=== PATIENT | female | born 1970 | race Caucasian/White ===

== ENCOUNTER 2016-08-14 12:45 | Emergency (ER) | payer OTHER ==
[2016-08-14] MEDS ORDERED: MORPHINE 2 MG/ML 1ML SYRINGE As Ordered ONE (13:26)
[2016-08-14] MEDS ORDERED: ONDANSETRON 4MG/2ML VIAL (J2405) As Ordered ONE (13:26)
[2016-08-14] MEDS ORDERED: LIDOCAINE W/EPINEPHRINE 1% 20ML VIAL As Ordered ONE (14:13)
--- NOTE | 2016-08-14 14:13 | REP ---
CT Head without contrast HISTORY: Fall COMPARISON: None There is no intraparenchymal hemorrhage, acute infarct, mass or midline shift. The ventricular system is normal in appearance. There is no extra cerebral collection. There is no fracture. The visualized sinuses are clear. IMPRESSION: There is no intracranial lesion. Signed by Rajeev Danielle MD 08/14/2016 02:05 P
--- NOTE | 2016-08-14 15:05 | REP ---
MAXILLOFACIAL CT WITHOUT CONTRAST: HISTORY: Fall. Minimal mucosal thickening is present in the right maxillary sinus. The remaining sinuses are clear. The ostiomeatal units are patent. The middle and inferior nasal turbinates are partially paradoxical. There is mild deviation of the nasal septum to the right. A spur is present arising from the right side of the nasal septum. The spur abuts the right inferior nasal turbinate. The cribriform plate, medial sheridan of the orbits and optic canals are intact. The carotid canals form a segment of the posterolateral sheridan of the sphenoid sinus. There is no fracture. Soft tissue swelling is present overlying the right maxillary sinus and inferior orbit. IMPRESSION: 1. Sinus mucosal thickening as described above. 2. There is no fracture. Signed by Rajeev Danielle MD 08/14/2016 03:15 P
--- NOTE | 2016-08-14 15:10 | REP ---
CT cervical spine without contrast: History: Fall. There is no acute fracture or subluxation. Disc bulges are present at the C3-4 and C4-5 levels. A disc bulge with associated osteophyte formation is present at the C5-6 level. There is minimal narrowing of the spinal canal. Uncinate process hypertrophy is present at the C5-6 level. This produces minimal narrowing of the C5 neural foramina. The remaining neural foramina are patent. The C3-4 and C5-6 intervertebral discs are decreased in height consistent with disc degeneration. Subchondral cysts are present in the C4 and C6 vertebral bodies. Anterior osteophytes are present at the C1-2 and C3 through C7 levels. There is loss of the normal lordotic curve. The thyroid gland is heterogeneous in density. The thyroid gland is normal in size. IMPRESSION: 1. There is no acute fracture or subluxation. 2. There is cervical spondylosis at the C1-2 and C3-4 trough C5-6 levels. 3. The thyroid gland is heterogeneous in density. Ultrasound may be helpful for further evaluation. Signed by Rajeev Danielle MD 08/14/2016 03:15 P
--- NOTE | 2016-08-14 15:57 | REP ---
Right ankle series: Five views: History: Injury in a fall. Findings: Five views of the right ankle demonstrate Achilles and plantar calcaneal spurring. Ankle mortise is intact. No tibial or fibular fracture is seen. There are soft tissue calcifications in the subcutaneous fat layer of the distal calf. These may be dystrophic or related to venous insufficiency. Impression: Heel spurs. No fracture or subluxation seen. Subcutaneous soft tissue calcifications. Signed by Gt Quinteros MD 08/14/2016 04:24 P
--- NOTE | 2016-08-14 16:12 | EDDOCDS ---
Physician Documentation [facility] Name: Massiel Hardin Age: 46 yrs Sex: Female : 1970 Arrival Date: 08/14/2016 Time: 12:45 Bed 7 Private MD: Megan Arora A Disposition: 08/14/16 16:00 Discharged to Home/Self Care. Impression: Fall (on) (from) other stairs and steps, Open wound of head. - Condition is Stable. - Discharge Instructions: Fall Prevention and Home Safety, Facial Laceration, [id number]. - Medication Reconciliation, Local Pharmacy Hours form. - Follow up: Megan Aorra; When: Call to arrange an appointment; Reason: Continuance of care. Follow up: Juan Fernandez; When: Call to arrange an appointment; Reason: Continuance of care. - Problem is new. - Symptoms have improved. Historical: - Allergies: No known drug Allergies; - Home Meds: 1. Sertraline daily 2. hydroxyzine HCl 25 mg Oral tab nightly 3. Zyrtec 10 mg Oral tab 1 tab once daily 4. Omeprazole OTC strength Oral as needed 5. levothyroxine 100 mcg Oral tab 1 tab once daily - PMHx: Hypothyroidism; GERD; Hiatal Hernia; Small umbilical hernia; DVT; - PSHx: Cholecystectomy; Left wrist surgery; Left achilles tendon surgery; - Social history: Smoking status: Patient uses tobacco products, current some day smoker. No barriers to communication noted, The patient speaks fluent Cambodian, Speaks appropriately for age. - Family history: Not pertinent. - : The pt / caregiver states he / she is not on anticoagulants. Home medication list is obtained from the patient. - Exposure Risk Screening:: None identified. 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 8 in. (172.72 cm); Pain 8/10; 16:09 BP 145 / 72; Pulse 80; Resp 18; Temp 97.3; Pulse Ox 98% on R/A; Pain 5/10; pml 12:56 Body Mass Index 41.81 (124.74 kg, 172.72 cm) kc3 Procedures: 14:35 Laceration repair:. fg Laceration: 14:35 Wound Repair of 2.5cm ( 1.0in ) full thickness laceration to right ear and right fg rastafari. Distal neuro/vascular/tendon intact. Anesthesia: Local anesthetic administered with 3 mls of 1% lidocaine w/ Epi. Wound prep: Moderate cleansing by nurse. Skin closed with 3 x 5-0 Ethilon using Simple interrupted sutures. Dressed with Bacitracin. Patient tolerated well. MDM: 13:22 IV Saline Lock ordered. fg 13:22 Ondansetron 4 mg IVP once ordered. fg 13:22 morphine 2 mg IVP once ordered. fg 13:24 CT Head Without Contrast Ordered. EDMS 13:24 CT Maxilofacial W/out Contrast Ordered. EDMS 13:24 CT Spine,Cervical W/o Contrast Ordered. EDMS 13:24 Ankle, Complete Ordered. EDMS 13:53 Financial registration complete. lg 14:07 [facility] Payment Agreement was scanned into [email or web address] and attached to record. Administered Medications: 13:31 Drug: Ondansetron 4 mg [ondansetron HCl 2 mg/mL intravenous solution (2 mL)] Route: pml IVP; Site: right antecubital; 13:31 Drug: morphine 2 mg [morphine 2 mg/mL intravenous cartridge (1 mL)] Route: IVP; Site: pml right antecubital; 13:40 Follow up: Response: Confirmed pt not driving.; Pain is decreased [facility] Signatures: Dispatcher [employer] EDMS Leonard Peñaloza, Reg Reg lg Marie Andre RN RN pml Stephanie Norman MD MD Carolina Hector RN RN kc3 The chart was reviewed and I authenticate all verbal orders and agree with the evaluation and treatment provided.Attachments: 14:07 [facility] [place] lg MTDD
--- NOTE | 2016-08-14 16:12 | EDDOCDS ---
Nurse's Notes [facility] Name: Massiel Hardin Age: 46 yrs Sex: Female : 1970 Arrival Date: 08/14/2016 Time: 12:45 Bed 7 Private MD: Megan Arora A Diagnosis: Fall (on) (from) other stairs and steps;Open wound of head Presentation: 08/14 12:52 Presenting complaint: EMS states: Pt rolled right ankle falling down 6-7 steps landing kc3 face first. No LOC reported. No witnesses. Headache reported. Laceration to right eyebrow with minimal bleeding. Adult Sepsis Screening: The patient does not have new or worsening altered mentation. 12:52 Acuity: JUAN Level 3 kc3 12:56 Adult Sepsis Screening: Patient's respiratory rate is less than 22. Systolic blood kc3 pressure is greater than 100. Patient has a qSOFA score of 0- Negative Sepsis Screen. Suicide/Homicide risk assessment- the patient denies having any suicidal and/or homicidal ideations and does not present with any other emotional, behavioral or mental health complaints. Status: Patient is not a community service worker or dependent. Transition of care: patient was not received from another setting of care. 12:56 Method Of Arrival: Ambulance kc3 12:56 Care prior to arrival: C collar in place. kc3 Triage Assessment: 13:02 General: Appears uncomfortable, Behavior is appropriate for age, cooperative. Pain: kc3 Location: headache Pain currently is 8 out of 10 on a pain scale. The patient is triaged at the bedside. See Assessment in Nurses Notes section of ED record. Neurological: Level of Consciousness is awake, alert, obeys commands, Oriented to person, place, time. Respiratory: Airway is patent Respiratory effort is even, unlabored, Respiratory pattern is regular, symmetrical. GI: Reports nausea. Derm: Laceration approx 1in in diameter to right eyebrow. Minimal bleeding noted. Musculoskeletal: Circulation, motion, and sensation intact. Injury Description: pt fell down 6stairs. Laceration sustained to right alevism is clean. 16:10 HIV screening NA for this visit Offered previously. 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 Sertraline daily 2. hydroxyzine HCl 25 mg Oral tab nightly 3. Zyrtec 10 mg Oral tab 1 tab once daily 4. Omeprazole OTC strength Oral as needed 5. levothyroxine 100 mcg Oral tab 1 tab once daily - PMHx: Hypothyroidism; GERD; Hiatal Hernia; Small umbilical hernia; DVT; - PSHx: Cholecystectomy; Left wrist surgery; Left achilles tendon surgery; - Social history: Smoking status: Patient uses tobacco products, current some day smoker. No barriers to communication noted, The patient speaks fluent Bulgarian, Speaks appropriately for age. - Family history: Not pertinent. - : The pt / caregiver states he / she is not on anticoagulants. Home medication list is obtained from the patient. - Exposure Risk Screening:: None identified. Screenin:04 Screening information is obtained from the patient. Fall risk: At risk due to prior [facility] history of falls, The following interventions are performed due to a positive Fall Risk Screen: Fall Risk is added to Special Handling on the patient Summary Screen. A Fall Risk Bracelet was applied to the patient. Side Rails are placed in the up position. A Call Wolf is given with instruction to call for help when getting out of bed. Fall Alert bracelet is placed on the patient. Assistance ADL's: requires no assistance with activities of daily living. Abuse/DV Screen: The patient / caregiver reports he/she is: not in a situation that causes fear, pain or injury. Nutritional screening: No deficits noted. Advance Directives: Currently, there is no health care proxy. home support is adequate. Assessment: 13:29 General: Appears in no apparent distress, comfortable, Behavior is appropriate for age, pml cooperative. Pain: Location: right alevism Pain currently is 8 out of 10 on a pain scale. Neurological: Level of Consciousness is awake, alert, Oriented to person, place, time. Cardiovascular: Capillary refill < 3 seconds. Respiratory: Airway is patent Respiratory effort is even, unlabored, Respiratory pattern is regular, symmetrical. GI: Abdomen is non- distended obese. Derm: Skin is pink, warm & dry. 13:31 Injury Description: Laceration sustained to right alevism is superficial, 2.6 to 7.5 cm pml long, was sustained 30-60 minutes ago. is bleeding no active bleeding noted. 14:17 General: MD Norman at bedside for laceration repair. pml 15:23 General: Appears in no apparent distress, Behavior is appropriate for age, cooperative. pml Pain: Location: right alevism Pain currently is 5 out of 10 on a pain scale. Neurological: Level of Consciousness is awake, alert, Oriented to person, place, time. Cardiovascular: Capillary refill < 3 seconds. Respiratory: Airway is patent Respiratory effort is even, unlabored. Derm: Skin is pink, warm & dry. 16:09 General: Appears in no apparent distress, comfortable, Behavior is appropriate for age, pml cooperative. Pain: Location: right alevism Pain currently is 5 out of 10 on a pain scale. Neurological: Level of Consciousness is awake, alert, Oriented to person, place, time. Cardiovascular: Capillary refill < 3 seconds. Respiratory: Airway is patent Respiratory effort is even, unlabored. Derm: Skin is pink, warm & dry. Vital Signs: 12:56 BP 148 / 92; Pulse 73; Resp 16; Temp 97.6(O); Pulse Ox 99% on R/A; Weight 124.74 kg; kc3 Height 5 ft. 8 in. (172.72 cm); Pain 8/10; 16:09 BP 145 / 72; Pulse 80; Resp 18; Temp 97.3; Pulse Ox 98% on R/A; Pain 5/10; pml 12:56 Body Mass Index 41.81 (124.74 kg, 172.72 cm) [facility] Vitals: 12:56 Log In Time N/A - ambulance arrival. [facility] ED Course: 12:46 Patient visited by Zhane Zafar, Network Firewall Engineer. lbd 12:46 Megan Arora is Private Physician. lbd 12:46 Patient moved to Waiting lbd 12:47 Patient moved to 7 lbd 12:50 Stephanie Norman MD is Attending Physician. fg 12:55 Triage Initiated [facility] 13:12 Patient visited by Stephanie Norman MD. fg 13:29 The patient / caregiver is instructed regarding the plan of care and ED course. Patient pml has correct armband on for positive identification. Placed in gown. Bed in low position. Call light in reach. Side rails up X2. 13:29 Inserted peripheral IV: 20gauge IV in right antecubital area and blood collected. pml Patient tolerated the procedure well. 13:31 Patient visited by Marie Andre RN. pml 14:07 [facility] Payment Agreement was scanned into [employer] and attached to record. lg 14:17 Patient visited by Marie Andre RN. pml 14:17 Wound care to laceration located on right alevism was cleaned with Hibiclens, irrigated mb9 with normal saline, Patient tolerated well. 14:20 Assist provider with laceration repair using sutures, Laceration was 2.6 to 7.5 cm. pml with a simple repair. Performed by Megan Arora Set up tray. Dressed with Neosporin and Patient tolerated well. 15:01 CT Head Without Contrast Returned. EDMS 15:24 Patient visited by Marie Andre RN. pml 15:52 CT Maxilofacial W/out Contrast Returned. EDMS 15:52 CT Spine,Cervical W/o Contrast Returned. EDMS 15:58 Megan Arora is Referral Physician. fg 16:00 Juan Fernandez is Referral Physician. fg 16:09 Discontinued lock intact, bleeding controlled, pressure dressing applied, No pml redness/swelling at site. Administered Medications: 13:31 Drug: Ondansetron 4 mg [ondansetron HCl 2 mg/mL intravenous solution (2 mL)] Route: pml IVP; Site: right antecubital; 13:31 Drug: morphine 2 mg [morphine 2 mg/mL intravenous cartridge (1 mL)] Route: IVP; Site: pml right antecubital; 13:40 Follow up: Response: Confirmed pt not driving.; Pain is decreased pml Order Results: Radiology Order: CT Head Without Contrast Test: CT Head Without Contrast REASON FOR EXAMINATION: fall [place]; CT Head without contrast; ; HISTORY: Fall; ; COMPARISON: None; ; There is no intraparenchymal hemorrhage, acute infarct, mass or midline shift.; The ventricular system is normal in appearance. There is no extra cerebral; collection. There is no fracture. The visualized sinuses are clear.; ; IMPRESSION: There is no intracranial lesion.; ; ; ; ; Signed by; Rajeev Danielle MD 08/14/2016 02:05 P; Radiology Order: CT Maxilofacial W/out Contrast Test: CT Maxilofacial W/out Contrast REASON FOR EXAMINATION: fall, right facial pain; MAXILLOFACIAL CT WITHOUT CONTRAST:; ; HISTORY: Fall.; ; Minimal mucosal thickening is present in the right maxillary sinus. The remaining; sinuses are clear. The ostiomeatal units are patent. The middle and inferior; nasal turbinates are partially paradoxical. There is mild deviation of the nasal; septum to the right. A spur is present arising from the right side of the nasal; septum. The spur abuts the right inferior nasal turbinate. The cribriform plate,; medial sheridan of the orbits and optic canals are intact. The carotid canals form a; segment of the posterolateral sheridan of the sphenoid sinus. There is no fracture.; Soft tissue swelling is present overlying the right maxillary sinus and inferior; orbit.; ; IMPRESSION:; ; 1. Sinus mucosal thickening as described above.; ; 2. There is no fracture.; ; ; Signed by; Rajeev Danielle MD 08/14/2016 03:15 P; Radiology Order: CT Spine,Cervical W/o Contrast Test: CT Spine,Cervical W/o Contrast REASON FOR EXAMINATION: neck pain; CT cervical spine without contrast:; ; History: Fall.; ; There is no acute fracture or subluxation. Disc bulges are present at the C3-4; and C4-5 levels. A disc bulge with associated osteophyte formation is present at; the C5-6 level. There is minimal narrowing of the spinal canal. Uncinate process; hypertrophy is present at the C5-6 level. This produces minimal narrowing of the; C5 neural foramina. The remaining neural foramina are patent. The C3-4 and C5-6; intervertebral discs are decreased in height consistent with disc degeneration.; Subchondral cysts are present in the C4 and C6 vertebral bodies. Anterior; osteophytes are present at the C1-2 and C3 through C7 levels. There is loss of; the normal lordotic curve. The thyroid gland is heterogeneous in density. The; thyroid gland is normal in size.; ; IMPRESSION:; ; 1. There is no acute fracture or subluxation.; ; 2. There is cervical spondylosis at the C1-2 and C3-4 trough C5-6 levels.; ; 3. The thyroid gland is heterogeneous in density. Ultrasound may be helpful for; further evaluation.; ; ; Signed by; Rajeev Danielle MD 08/14/2016 03:15 P; Outcome: 16:00 Discharge ordered by Provider. fg 16:09 Discharge Assessment: Patient awake, alert and oriented x 3. No cognitive and/or pml functional deficits noted. Patient verbalized understanding of disposition instructions. patient administered narcotics - yes. Pt provided with safe discharge. The following High Risk Discharge criteria are identified: None. Discharged to home ambulatory, with family. Condition: good Condition: stable. Discharge instructions given to patient, Instructed on discharge instructions, follow up and referral plans. Demonstrated understanding of instructions, Pt was receptive of discharge instructions/ teaching. CT Study completed. Property sent home with patient. 16:11 Patient left the ED. pml Signatures: Dispatcher [employer] EDMS Zhane Zafar, Network Firewall Engineer Unit lbd Leonard Peñaloza, Reg Reg lg Marie Andre,RN RN Sean Barbosa,RN RN mb9 Stephanie Norman MD MD fg Crane, Kelsi,RN RN kc3 MTDD
--- NOTE | 2016-08-16 17:11 | EDDOCDS ---
Physician Documentation [facility] Name: Massiel Hardin Age: 46 yrs Sex: Female : 1970 Arrival Date: 08/14/2016 Time: 12:45 Bed 7 Private MD: Megan Arora A Disposition: 08/14/16 16:00 Discharged to Home/Self Care. Impression: Fall (on) (from) other stairs and steps, Open wound of head. - Condition is Stable. - Discharge Instructions: Fall Prevention and Home Safety, Facial Laceration, [id number]. - Medication Reconciliation, Local Pharmacy Hours form. - Follow up: Megan Arora; When: Call to arrange an appointment; Reason: Continuance of care. Follow up: Juan Fernandez; When: Call to arrange an appointment; Reason: Continuance of care. - Problem is new. - Symptoms have improved. Historical: - Allergies: No known drug Allergies; - Home Meds: 1. Sertraline daily 2. hydroxyzine HCl 25 mg Oral tab nightly 3. Zyrtec 10 mg Oral tab 1 tab once daily 4. Omeprazole OTC strength Oral as needed 5. levothyroxine 100 mcg Oral tab 1 tab once daily - PMHx: Hypothyroidism; GERD; Hiatal Hernia; Small umbilical hernia; DVT; - PSHx: Cholecystectomy; Left wrist surgery; Left achilles tendon surgery; - Social history: Smoking status: Patient uses tobacco products, current some day smoker. No barriers to communication noted, The patient speaks fluent Moldovan, Speaks appropriately for age. - Family history: Not pertinent. - : The pt / caregiver states he / she is not on anticoagulants. Home medication list is obtained from the patient. - Exposure Risk Screening:: None identified. 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 8 in. (172.72 cm); Pain 8/10; 16:09 BP 145 / 72; Pulse 80; Resp 18; Temp 97.3; Pulse Ox 98% on R/A; Pain 5/10; pml 12:56 Body Mass Index 41.81 (124.74 kg, 172.72 cm) kc3 Procedures: 14:35 Laceration repair:. fg Laceration: 14:35 Wound Repair of 2.5cm ( 1.0in ) full thickness laceration to right ear and right fg jehovah's witness. Distal neuro/vascular/tendon intact. Anesthesia: Local anesthetic administered with 3 mls of 1% lidocaine w/ Epi. Wound prep: Moderate cleansing by nurse. Skin closed with 3 x 5-0 Ethilon using Simple interrupted sutures. Dressed with Bacitracin. Patient tolerated well. MDM: 13:22 IV Saline Lock ordered. fg 13:22 Ondansetron 4 mg IVP once ordered. fg 13:22 morphine 2 mg IVP once ordered. fg 13:24 CT Head Without Contrast Ordered. EDMS 13:24 CT Maxilofacial W/out Contrast Ordered. EDMS 13:24 CT Spine,Cervical W/o Contrast Ordered. EDMS 13:24 Ankle, Complete Ordered. EDMS 13:53 Financial registration complete. 14:07 [facility] Payment Agreement was scanned into [employer] and attached to record. 08/15 10:46 T-Sheet-- Draft Copy was scanned into [employer] and attached to record. gb 17:33 PCR was scanned into [employer] and attached to record. gb Administered Medications: 08/14 13:31 Drug: Ondansetron 4 mg [ondansetron HCl 2 mg/mL intravenous solution (2 mL)] Route: pml IVP; Site: right antecubital; 13:31 Drug: morphine 2 mg [morphine 2 mg/mL intravenous cartridge (1 mL)] Route: IVP; Site: pml right antecubital; 13:40 Follow up: Response: Confirmed pt not driving.; Pain is decreased pml Signatures: Dispatcher [employer] EDMS Leni Oquendo, Reg Reg gb Leonard Peñaloza, Reg Reg lg Marie Andre,ATTILA RN pml Stephanie Norman MD MD fg Crane, Kelsi, RN RN kc3 The chart was reviewed and I authenticate all verbal orders and agree with the evaluation and treatment provided.Attachments: 14:07 [facility] Payment Agreement 08/15 10:46 T-Sheet-- Draft Copy gb Chart Complete MTDD
--- NOTE | 2016-08-16 17:11 | EDDOCDS ---
Physician Documentation [facility] Name: Massiel Hardin Age: 46 yrs Sex: Female : 1970 Arrival Date: 08/14/2016 Time: 12:45 Bed 7 Private MD: Megan Arora A Disposition: 08/14/16 16:00 Discharged to Home/Self Care. Impression: Fall (on) (from) other stairs and steps, Open wound of head. - Condition is Stable. - Discharge Instructions: Fall Prevention and Home Safety, Facial Laceration, [id number]-Nlpe. - Medication Reconciliation, Local Pharmacy Hours form. - Follow up: Megan Arora; When: Call to arrange an appointment; Reason: Continuance of care. Follow up: Juan Fernandez; When: Call to arrange an appointment; Reason: Continuance of care. - Problem is new. - Symptoms have improved. Historical: - Allergies: No known drug Allergies; - Home Meds: 1. Sertraline daily 2. hydroxyzine HCl 25 mg Oral tab nightly 3. Zyrtec 10 mg Oral tab 1 tab once daily 4. Omeprazole OTC strength Oral as needed 5. levothyroxine 100 mcg Oral tab 1 tab once daily - PMHx: Hypothyroidism; GERD; Hiatal Hernia; Small umbilical hernia; DVT; - PSHx: Cholecystectomy; Left wrist surgery; Left achilles tendon surgery; - Social history: Smoking status: Patient uses tobacco products, current some day smoker. No barriers to communication noted, The patient speaks fluent Malawian, Speaks appropriately for age. - Family history: Not pertinent. - : The pt / caregiver states he / she is not on anticoagulants. Home medication list is obtained from the patient. - Exposure Risk Screening:: None identified. CEMENT BASED MATERIALS PUMP TENDER: 08/14 12:56 LMP N/A - control method kc3 Vital Signs: 12:56 BP 148 / 92; Pulse 73; Resp 16; Temp 97.6(O); Pulse Ox 99% on R/A; Weight 124.74 kg / kc3 275 lbs; Height 5 ft. 8 in. (172.72 cm); Pain 8/10; 16:09 BP 145 / 72; Pulse 80; Resp 18; Temp 97.3; Pulse Ox 98% on R/A; Pain 5/10; pml 12:56 Body Mass Index 41.81 (124.74 kg, 172.72 cm) kc3 Procedures: 14:35 Laceration repair:. fg Laceration: 14:35 Wound Repair of 2.5cm ( 1.0in ) full thickness laceration to right ear and right fg amish. Distal neuro/vascular/tendon intact. Anesthesia: Local anesthetic administered with 3 mls of 1% lidocaine w/ Epi. Wound prep: Moderate cleansing by nurse. Skin closed with 3 x 5-0 Ethilon using Simple interrupted sutures. Dressed with Bacitracin. Patient tolerated well. MDM: 13:22 IV Saline Lock ordered. fg 13:22 Ondansetron 4 mg IVP once ordered. fg 13:22 morphine 2 mg IVP once ordered. fg 13:24 CT Head Without Contrast Ordered. EDMS 13:24 CT Maxilofacial W/out Contrast Ordered. EDMS 13:24 CT Spine,Cervical W/o Contrast Ordered. EDMS 13:24 Ankle, Complete Ordered. EDMS 13:53 Financial registration complete. 14:07 [facility] Payment Agreement was scanned into [facility] and attached to record. 08/15 10:46 T-Sheet-- Draft Copy was scanned into [facility] and attached to record. gb 17:33 PCR was scanned into [facility] and attached to record. gb Administered Medications: 08/14 13:31 Drug: Ondansetron 4 mg [ondansetron HCl 2 mg/mL intravenous solution (2 mL)] Route: pml IVP; Site: right antecubital; 13:31 Drug: morphine 2 mg [morphine 2 mg/mL intravenous cartridge (1 mL)] Route: IVP; Site: pml right antecubital; 13:40 Follow up: Response: Confirmed pt not driving.; Pain is decreased pml Signatures: Dispatcher [employer] EDMS Leni Oquendo, Reg Reg gb Leonard Peñaloza, Reg Reg lg Marie Andre,ATTILA RN pml Stephanie Norman MD MD fg Crane, Kelsi, RN RN kc3 The chart was reviewed and I authenticate all verbal orders and agree with the evaluation and treatment provided.Attachments: 14:07 [facility] Payment Agreement 08/15 10:46 T-Sheet-- Draft Copy gb Chart Complete MTDD
--- NOTE | 2016-08-16 17:11 | EDDOCDS ---
Nurse's Notes [facility] Name: Massiel Hardin Age: 46 yrs Sex: Female : 1970 Arrival Date: 08/14/2016 Time: 12:45 Bed 7 Private MD: Megan Arora A Diagnosis: Fall (on) (from) other stairs and steps;Open wound of head Presentation: 08/14 12:52 Presenting complaint: EMS states: Pt rolled right ankle falling down 6-7 steps landing kc3 face first. No LOC reported. No witnesses. Headache reported. Laceration to right eyebrow with minimal bleeding. Adult Sepsis Screening: The patient does not have new or worsening altered mentation. 12:52 Acuity: JUAN Level 3 kc3 12:56 Adult Sepsis Screening: Patient's respiratory rate is less than 22. Systolic blood kc3 pressure is greater than 100. Patient has a qSOFA score of 0- Negative Sepsis Screen. Suicide/Homicide risk assessment- the patient denies having any suicidal and/or homicidal ideations and does not present with any other emotional, behavioral or mental health complaints. Status: Patient is not a seasonal customer service associate or dependent. Transition of care: patient was not received from another setting of care. 12:56 Method Of Arrival: Ambulance kc3 12:56 Care prior to arrival: C collar in place. kc3 Triage Assessment: 13:02 General: Appears uncomfortable, Behavior is appropriate for age, cooperative. Pain: kc3 Location: headache Pain currently is 8 out of 10 on a pain scale. The patient is triaged at the bedside. See Assessment in Nurses Notes section of ED record. Neurological: Level of Consciousness is awake, alert, obeys commands, Oriented to person, place, time. Respiratory: Airway is patent Respiratory effort is even, unlabored, Respiratory pattern is regular, symmetrical. GI: Reports nausea. Derm: Laceration approx 1in in diameter to right eyebrow. Minimal bleeding noted. Musculoskeletal: Circulation, motion, and sensation intact. Injury Description: pt fell down 6stairs. Laceration sustained to right taoism is clean. 16:10 HIV screening NA for this visit Offered previously. pml BANKRUPTCY ASSISTANT: 12:56 LMP N/A - control method kc3 Historical: - Allergies: No known drug Allergies; - Home Meds: 1. Sertraline daily 2. hydroxyzine HCl 25 mg Oral tab nightly 3. Zyrtec 10 mg Oral tab 1 tab once daily 4. Omeprazole OTC strength Oral as needed 5. levothyroxine 100 mcg Oral tab 1 tab once daily - PMHx: Hypothyroidism; GERD; Hiatal Hernia; Small umbilical hernia; DVT; - PSHx: Cholecystectomy; Left wrist surgery; Left achilles tendon surgery; - Social history: Smoking status: Patient uses tobacco products, current some day smoker. No barriers to communication noted, The patient speaks fluent Bengali, Speaks appropriately for age. - Family history: Not pertinent. - : The pt / caregiver states he / she is not on anticoagulants. Home medication list is obtained from the patient. - Exposure Risk Screening:: None identified. Screenin:04 Screening information is obtained from the patient. Fall risk: At risk due to prior [facility] history of falls, The following interventions are performed due to a positive Fall Risk Screen: Fall Risk is added to Special Handling on the patient Summary Screen. A Fall Risk Bracelet was applied to the patient. Side Rails are placed in the up position. A Call Wolf is given with instruction to call for help when getting out of bed. Fall Alert bracelet is placed on the patient. Assistance ADL's: requires no assistance with activities of daily living. Abuse/DV Screen: The patient / caregiver reports he/she is: not in a situation that causes fear, pain or injury. Nutritional screening: No deficits noted. Advance Directives: Currently, there is no health care proxy. home support is adequate. Assessment: 13:29 General: Appears in no apparent distress, comfortable, Behavior is appropriate for age, pml cooperative. Pain: Location: right taoism Pain currently is 8 out of 10 on a pain scale. Neurological: Level of Consciousness is awake, alert, Oriented to person, place, time. Cardiovascular: Capillary refill < 3 seconds. Respiratory: Airway is patent Respiratory effort is even, unlabored, Respiratory pattern is regular, symmetrical. GI: Abdomen is non- distended obese. Derm: Skin is pink, warm & dry. 13:31 Injury Description: Laceration sustained to right taoism is superficial, 2.6 to 7.5 cm pml long, was sustained 30-60 minutes ago. is bleeding no active bleeding noted. 14:17 General: MD Norman at bedside for laceration repair. pml 15:23 General: Appears in no apparent distress, Behavior is appropriate for age, cooperative. pml Pain: Location: right taoism Pain currently is 5 out of 10 on a pain scale. Neurological: Level of Consciousness is awake, alert, Oriented to person, place, time. Cardiovascular: Capillary refill < 3 seconds. Respiratory: Airway is patent Respiratory effort is even, unlabored. Derm: Skin is pink, warm & dry. 16:09 General: Appears in no apparent distress, comfortable, Behavior is appropriate for age, pml cooperative. Pain: Location: right taoism Pain currently is 5 out of 10 on a pain scale. Neurological: Level of Consciousness is awake, alert, Oriented to person, place, time. Cardiovascular: Capillary refill < 3 seconds. Respiratory: Airway is patent Respiratory effort is even, unlabored. Derm: Skin is pink, warm & dry. Vital Signs: 12:56 BP 148 / 92; Pulse 73; Resp 16; Temp 97.6(O); Pulse Ox 99% on R/A; Weight 124.74 kg; kc3 Height 5 ft. 8 in. (172.72 cm); Pain 8/10; 16:09 BP 145 / 72; Pulse 80; Resp 18; Temp 97.3; Pulse Ox 98% on R/A; Pain 5/10; pml 12:56 Body Mass Index 41.81 (124.74 kg, 172.72 cm) [facility] Vitals: 12:56 Log In Time N/A - ambulance arrival. [facility] ED Course: 12:46 Patient visited by Zhane Zafar, Cab Starter. lbd 12:46 Megan Arora is Private Physician. lbd 12:46 Patient moved to Waiting lbd 12:47 Patient moved to 7 lbd 12:50 Stephanie Norman MD is Attending Physician. fg 12:55 Triage Initiated [facility] 13:12 Patient visited by Stephanie Norman MD. fg 13:29 The patient / caregiver is instructed regarding the plan of care and ED course. Patient pml has correct armband on for positive identification. Placed in gown. Bed in low position. Call light in reach. Side rails up X2. 13:29 Inserted peripheral IV: 20gauge IV in right antecubital area and blood collected. pml Patient tolerated the procedure well. 13:31 Patient visited by Marie Andre RN. pml 14:07 [facility] Payment Agreement was scanned into [employer] and attached to record. lg 14:17 Patient visited by Marie Andre RN. pml 14:17 Wound care to laceration located on right taoism was cleaned with Hibiclens, irrigated mb9 with normal saline, Patient tolerated well. 14:20 Assist provider with laceration repair using sutures, Laceration was 2.6 to 7.5 cm. pml with a simple repair. Performed by Megan Arora Set up tray. Dressed with Neosporin and Patient tolerated well. 15:01 CT Head Without Contrast Returned. EDMS 15:24 Patient visited by Marie Andre RN. pml 15:52 CT Maxilofacial W/out Contrast Returned. EDMS 15:52 CT Spine,Cervical W/o Contrast Returned. EDMS 15:58 Megan Arora is Referral Physician. fg 16:00 Juan Fernandez is Referral Physician. fg 16:09 Discontinued lock intact, bleeding controlled, pressure dressing applied, No pml redness/swelling at site. 16:45 Ankle, Complete Returned. EDMS 02 10:46 T-Sheet-- Draft Copy was scanned into [employer] and attached to record. gb 17:33 PCR was scanned into [employer] and attached to record. gb Administered Medications: 08/14 13:31 Drug: Ondansetron 4 mg [ondansetron HCl 2 mg/mL intravenous solution (2 mL)] Route: [facility] IVP; Site: right antecubital; 13:31 Drug: morphine 2 mg [morphine 2 mg/mL intravenous cartridge (1 mL)] Route: IVP; Site: pml right antecubital; 13:40 Follow up: Response: Confirmed pt not driving.; Pain is decreased pml Order Results: Radiology Order: CT Head Without Contrast Test: CT Head Without Contrast REASON FOR EXAMINATION: fall glasgow; CT Head without contrast; ; HISTORY: Fall; ; COMPARISON: None; ; There is no intraparenchymal hemorrhage, acute infarct, mass or midline shift.; The ventricular system is normal in appearance. There is no extra cerebral; collection. There is no fracture. The visualized sinuses are clear.; ; IMPRESSION: There is no intracranial lesion.; ; ; ; ; Signed by; Rajeev Danielle MD 08/14/2016 02:05 P; Radiology Order: CT Maxilofacial W/out Contrast Test: CT Maxilofacial W/out Contrast REASON FOR EXAMINATION: fall, right facial pain; MAXILLOFACIAL CT WITHOUT CONTRAST:; ; HISTORY: Fall.; ; Minimal mucosal thickening is present in the right maxillary sinus. The remaining; sinuses are clear. The ostiomeatal units are patent. The middle and inferior; nasal turbinates are partially paradoxical. There is mild deviation of the nasal; septum to the right. A spur is present arising from the right side of the nasal; septum. The spur abuts the right inferior nasal turbinate. The cribriform plate,; medial sheridan of the orbits and optic canals are intact. The carotid canals form a; segment of the posterolateral shreidan of the sphenoid sinus. There is no fracture.; Soft tissue swelling is present overlying the right maxillary sinus and inferior; orbit.; ; IMPRESSION:; ; 1. Sinus mucosal thickening as described above.; ; 2. There is no fracture.; ; ; Signed by; Rajeev Danielle MD 08/14/2016 03:15 P; Radiology Order: CT Spine,Cervical W/o Contrast Test: CT Spine,Cervical W/o Contrast REASON FOR EXAMINATION: neck pain; CT cervical spine without contrast:; ; History: Fall.; ; There is no acute fracture or subluxation. Disc bulges are present at the C3-4; and C4-5 levels. A disc bulge with associated osteophyte formation is present at; the C5-6 level. There is minimal narrowing of the spinal canal. Uncinate process; hypertrophy is present at the C5-6 level. This produces minimal narrowing of the; C5 neural foramina. The remaining neural foramina are patent. The C3-4 and C5-6; intervertebral discs are decreased in height consistent with disc degeneration.; Subchondral cysts are present in the C4 and C6 vertebral bodies. Anterior; osteophytes are present at the C1-2 and C3 through C7 levels. There is loss of; the normal lordotic curve. The thyroid gland is heterogeneous in density. The; thyroid gland is normal in size.; ; IMPRESSION:; ; 1. There is no acute fracture or subluxation.; ; 2. There is cervical spondylosis at the C1-2 and C3-4 trough C5-6 levels.; ; 3. The thyroid gland is heterogeneous in density. Ultrasound may be helpful for; further evaluation.; ; ; Signed by; Rajeev Danielle MD 08/14/2016 03:15 P; Radiology Order: Ankle, Complete Test: Ankle, Complete REASON FOR EXAMINATION: fall; Right ankle series: Five views:; ; History: Injury in a fall.; ; Findings: Five views of the right ankle demonstrate Achilles and plantar; calcaneal spurring. Ankle mortise is intact. No tibial or fibular fracture is; seen. There are soft tissue calcifications in the subcutaneous fat layer of the; distal calf. These may be dystrophic or related to venous insufficiency.; ; Impression:; ; Heel spurs. No fracture or subluxation seen. Subcutaneous soft tissue; calcifications.; ; ; Signed by; Gt Quinteros MD 08/14/2016 04:24 P; Outcome: 16:00 Discharge ordered by Provider. fg 16:09 Discharge Assessment: Patient awake, alert and oriented x 3. No cognitive and/or pml functional deficits noted. Patient verbalized understanding of disposition instructions. patient administered narcotics - yes. Pt provided with safe discharge. The following High Risk Discharge criteria are identified: None. Discharged to home ambulatory, with family. Condition: good Condition: stable. Discharge instructions given to patient, Instructed on discharge instructions, follow up and referral plans. Demonstrated understanding of instructions, Pt was receptive of discharge instructions/ teaching. CT Study completed. Property sent home with patient. 16:11 Patient left the ED. pml Signatures: Dispatcher [employer] EDMS Zhane Zafar, Cab Starter Unit lbd Leni Oquendo, Reg Reg gb Leonard Peñaloza, Reg Reg lg Marie Andre RN RN pml Sean Sullivan,ATTILA RN mb9 Stephanie Norman MD MD fg Crane, Kelsi,ATTILA RN kc3 Chart Complete MTDD
== END 2016-08-14 16:11 | disposition home or self-care (01) ==
LOC: M ED 12:45
DX: S01.81XA Laceration without foreign body of other part of head, initial encounter (principal); E03.9 Hypothyroidism, unspecified; K21.9 Gastro-esophageal reflux disease without esophagitis; K44.9 Diaphragmatic hernia without obstruction or gangrene; Z72.0 Tobacco use; Z86.718 Personal history of other venous thrombosis and embolism; Z79.899 Other long term (current) drug therapy; W10.8XXA Fall (on) (from) other stairs and steps, initial encounter; Y92.89 Other specified places as the place of occurrence of the external cause; Y93.01 Activity, walking, marching and hiking; Y99.0 Civilian activity done for income or pay
CPT/HCPCS: 12011; 36415; 70450; 70486; 72125; 73610; 96374; 96375; 99285; J2405

== ENCOUNTER → 2017-05-13 | Outpatient (CLI) | payer OTHER ==
--- NOTE | 2017-05-13 15:58 | REPMRS ---
Patient History The patient states she had a clinical breast exam in 05/2017. Family history of breast cancer in maternal grandmother and colorectal cancer in maternal grandmother. Taking hormonal contraceptives for 8 years. Digital Woman Screen Mammo: May 13, 2017 - Exam #: [id number] Bilateral CC and MLO view(s) were taken. Technologist: Loretta Pollock, Technologist Prior study comparison: May 12, 2016, digital woman screen mammo performed at [facility]. April 05, 2015, left breast digital mammo diagnostic unilateral, performed at [facility]. FINDINGS: There are scattered fibroglandular densities. The previously noted cysts in the left breast have regressed since the 2014 prior study. There has been no change in the appearance of the mammogram from the prior studies. There is a mild amount of scattered fibroglandular density which is fairly symmetric. There is no interval development of dominant mass, architectural distortion, or clustered microcalcification suggestive of malignancy. ASSESSMENT: BI-RADS/ACR category 2 mammogram. Benign finding(s). Recommendation Routine screening mammogram of both breasts in 1 year. This mammogram was interpreted with the aid of an FDA-approved computer-aided dectection system. This patient's Lifetime Breast Cancer RIsk is estimated at 19 %. Annual screening Breast MRI scanniing is recommended for patient's whose lifetime risk assessment is over 20%. Electronically Signed By: Joel Quinteros MD 05/13/17 [id number]
== END ==
LOC: M WHC 14:42
PROVIDERS: ATTEND Nurse Practitioner Family
DX: Z12.31 Encounter for screening mammogram for malignant neoplasm of breast (principal); Z92.0 Personal history of contraception; N60.12 Diffuse cystic mastopathy of left breast

== ENCOUNTER → 2018-08-10 | Outpatient (REF) | payer OTHER ==
[2018-08-13 15:39] LABS: HPV HYBRID CAPTURE II Positive (Negative)
== END ==
LOC: M SFHCWAGY 13:59
PROVIDERS: ATTEND Nurse Practitioner Family
DX: Z12.4 Encounter for screening for malignant neoplasm of cervix (principal)
CPT/HCPCS: 87624; G0123

== ENCOUNTER → 2018-08-10 | Outpatient (CLI) | payer OTHER ==
--- NOTE | 2018-08-10 18:29 | REPMRS ---
Patient History The patient states she had a clinical breast exam in 08/23 Family history of breast cancer and colorectal cancer in maternal grandmother. Taking hormonal contraceptives for 9 years. Digital Woman Screen Mammo: August 10, 2018 - Exam #: [id number] Bilateral CC and MLO view(s) were taken. Technologist: Zhane Mercado, Technologist Prior study comparison: May 13, 2017, digital woman screen mammo performed at [facility]. May 12, 2016, digital woman screen mammo performed at [facility]. March 27, 2015, digital woman screen mammo performed at [facility]. FINDINGS: There are scattered fibroglandular densities. There are stable nodular opacities in the left breast unchanged. There has been no change in the appearance of the mammogram from the prior studies. There is a mild amount of scattered fibroglandular density which is fairly symmetric. There is no interval development of dominant mass, architectural distortion, or clustered microcalcification suggestive of malignancy. 3-D tomosynthesis shows no additional findings. Assessment: BI-RADS/ACR category 2 mammogram. Benign Findings. Recommendation Routine screening mammogram of both breasts in 1 year (for women over age 40). This patient's Lifetime Breast Cancer RIsk is estimated at 18.6 %. This mammogram was interpreted with the aid of an FDA-approved computer-aided dectection system. Electronically Signed By: Joel Quinteros MD 08/10/18 [id number]
== END ==
LOC: M WHC 13:37
PROVIDERS: ATTEND Nurse Practitioner Family
DX: Z12.31 Encounter for screening mammogram for malignant neoplasm of breast (principal); Z79.3 Long term (current) use of hormonal contraceptives

== ENCOUNTER → 2019-01-09 | Outpatient (CLI) | payer OTHER ==
[2019-01-09 16:15] LABS: BLOOD UREA NITROGEN 12 MG/DL (7-18); CALCIUM LEVEL 8.8 MG/DL (8.5-10.1); CARBON DIOXIDE LEVEL 28 MEQ/L (21-32); CHLORIDE LEVEL 108 MEQ/L (98-107); CREATININE FOR GFR 0.87 MG/DL (0.55-1.30); GLOMERULAR FILTRATION RATE > 60.0 (>58); GLUCOSE, FASTING 79 MG/DL (70-100); POTASSIUM SERUM 4.2 MEQ/L (3.5-5.1); SODIUM LEVEL 142 MEQ/L (136-145)
== END ==
LOC: M SMT 11:24
PROVIDERS: ATTEND Nurse Practitioner Family
DX: Q60.0 Renal agenesis, unilateral (principal); N13.30 Unspecified hydronephrosis

== ENCOUNTER → 2019-01-16 | Outpatient (CLI) | payer OTHER ==
--- NOTE | 2019-01-16 14:17 | REP ---
URINARY TRACT SONOGRAPHY: HISTORY: Solitary kidney. Hydronephrosis. Comparison CT study: November 06, 2007 SONOGRAPHIC FINDINGS: Scanning at the level of the urinary bladder shows smooth bladder sheridan. Pre void bladder volume is calculated at 413 mL, and postvoid residual is 30 mL (7.3%). No extravesical lesion is seen. Right renal cortical echogenicity pattern is normal, and contours are smooth. The right kidney measures 12.2 x 6.5 x 5.2 cm. There is mild right-sided hydronephrosis. This is similar to CT appearance. The left kidney is absent. IMPRESSION: Solitary right kidney with mild right-sided hydronephrosis. Renal length 12.2 cm. No stone or mass seen. Electronically Signed by Gt Quinteros MD 01/16/2019 02:31 P
== END ==
LOC: M RAD 10:49
PROVIDERS: ATTEND Nurse Practitioner Family
DX: Q60.0 Renal agenesis, unilateral (principal); N13.30 Unspecified hydronephrosis

== ENCOUNTER → 2019-05-16 | Outpatient (CLI) | payer OTHER ==
--- NOTE | 2019-05-17 05:40 | REP ---
Clinical: Left wrist pain. Technique: Axial images through the left wrist with coronal and sagittal re-formations. Findings: There is evidence for prior fixation involving the scaphoid bone. No acute fracture or dislocation is appreciated. Underlying degenerative changes include subtle scattered pancarpal areas of cortical irregularity and very subtle spurring. Small areas of subchondral cystic change primarily noted involving the capitate, lunate nearing the borders with the adjacent screw through the scaphoid bone as well as smaller subchondral cystic area along the radial metaphysis. The scapholunate space measures approximately 2.5 mm. Surrounding musculotendinous structures and subcutaneous tissues appear relatively normal by noncontrast CT evaluation. No abnormal fluid collection or nodule/mass lesion identified. Impression: Mild likely post traumatic arthritic changes. No significant acute abnormality noted by noncontrast CT evaluation. If the patient remains symptomatic consider MRI for further evaluation. Electronically Signed by Jayro Andrade MD 05/17/2019 05:32 A
== END ==
LOC: M RAD 16:09
PROVIDERS: ATTEND Nurse Practitioner Adult Health
DX: M25.532 Pain in left wrist (principal)

== ENCOUNTER → 2019-07-12 | Outpatient (CLI) | payer OTHER ==
--- NOTE | 2019-07-13 11:24 | REP ---
Clinical: Hydronephrosis. Technique: Real time cedeno scale and color evaluation using curved array transducer. Findings: Noted absent left kidney. The right kidney is normal in contour, size, echogenicity, and reniform shape with mild pelviectasis and measures 12.0 x 5.7 x 5.1 cm. No cystic or renal mass lesion. Bladder demonstrates normal right ureteral jet. Impression: Mild right renal pelviectasis cannot be excluded. Electronically Signed by Jayro Andrade MD 07/13/2019 06:05 A
== END ==
LOC: M RAD 16:43
PROVIDERS: ATTEND Nurse Practitioner Family
DX: N13.30 Unspecified hydronephrosis (principal)

== ENCOUNTER → 2019-08-11 | Outpatient (CLI) | payer OTHER | LOC: M PLALAB 14:31 | PROVIDERS: ATTEND Nurse Practitioner Family | DX: Z13.79 Encounter for other screening for genetic and chromosomal anomalies (principal) ==

== ENCOUNTER → 2019-08-11 | Outpatient (REF) | payer OTHER | LOC: M SFHCWAGY 16:57 | PROVIDERS: ATTEND Nurse Practitioner Family | DX: B97.7 Papillomavirus as the cause of diseases classified elsewhere (principal) | CPT/HCPCS: 87624; G0123 ==

== ENCOUNTER → 2019-08-11 | Outpatient (CLI) | payer OTHER ==
--- NOTE | 2019-08-11 15:06 | REPMRS ---
Patient History The patient states she had a clinical breast exam in 2019. Family history of breast cancer and colorectal cancer in maternal grandmother. Taking hormonal contraceptives for 9 years. Digital Woman Screen Mammo: August 11, 2019 - Exam #: [id number] Bilateral CC and MLO view(s) were taken. Technologist: Hannah Garza, Technologist Prior study comparison: August 10, 2018, bilateral digital woman screen mammo performed at [facility]. May 13, 2017, digital woman screen mammo performed at [facility]. May 12, 2016, digital woman screen mammo performed at [facility]. April 05, 2015, left breast digital mammo diagnostic unilateral, performed at [facility]. FINDINGS: There are scattered fibroglandular densities. Previously noted left upper outer quadrant cyst is again seen unchanged. There has been no change in the appearance of the mammogram from the prior studies. There is a mild amount of scattered fibroglandular density which is fairly symmetric. There is no interval development of dominant mass, architectural distortion, or grouped microcalcification suggestive of malignancy. 3-D tomosynthesis shows no additional findings. Assessment: BI-RADS/ACR category 2 mammogram. Benign Findings. Recommendation Routine screening mammogram of both breasts in 1 year (for women over age 40). This patient's Lifetime Breast Cancer Risk is estimated at 18.3 %. This mammogram was interpreted with the aid of an FDA-approved computer-aided dectection system. Electronically Signed By: Joel Quinteros MD 08/11/19 [id number]
== END ==
LOC: M WHC 13:09
PROVIDERS: ATTEND Nurse Practitioner Family
DX: Z12.31 Encounter for screening mammogram for malignant neoplasm of breast (principal)

== ENCOUNTER → 2019-10-30 | Outpatient (REF) | payer OTHER | LOC: M SFHCWAGY 16:55 | PROVIDERS: ATTEND Nurse Practitioner Women's Health | DX: B97.7 Papillomavirus as the cause of diseases classified elsewhere (principal) ==

== ENCOUNTER → 2020-02-15 | Outpatient (CLI) | payer OTHER ==
[~2020-02-15] MED LIST: PROHANCE 279.3MG/ML 15ML VIAL As Ordered ONE; PROHANCE 279.3MG/ML 5ML VIAL As Ordered ONE
--- NOTE | 2020-03-29 09:14 | REP ---
BILATERAL BREAST MRI STUDY WITHOUT AND WITH IV CONTRAST HISTORY: High risk breast cancer screening study. COMPARISON: Mammography 08/11/2019. GADOLINIUM ENHANCEMENT DOSE: 20 mL of intravenous ProHance. BREAST MRI FINDINGS: There is no evidence of axillary lymphadenopathy on either side. No significant breast cystic change is seen. There are scattered fibroglandular elements bilaterally. There is a mild pattern of background parenchymal enhancement. No suspicious morphologic abnormalities observed in either breast on pre- and postcontrast high resolution images. Dynamically acquired sequential postcontrast images show no suspicious focus of enhancement and/or washout in either breast to suggest malignancy. Subtraction images show no additional abnormality. IMPRESSION: BI-RADS category 1 negative findings. Patients whose estimated lifetime breast cancer risk that is estimated at greater than 20% merit annual screening breast MRI scanning. MTDD
== END ==
LOC: M RAD 12:25
PROVIDERS: ATTEND Nurse Practitioner Family
DX: Z12.39 Encounter for other screening for malignant neoplasm of breast (principal); Z15.01 Genetic susceptibility to malignant neoplasm of breast; Z80.3 Family history of malignant neoplasm of breast
CPT/HCPCS: A9576; C8908

== ENCOUNTER → 2020-12-25 | Outpatient (REF) | payer OTHER | LOC: M SFHCWAGY 18:10 | PROVIDERS: ATTEND Nurse Practitioner Women's Health | DX: Z12.4 Encounter for screening for malignant neoplasm of cervix (principal) ==

== ENCOUNTER → 2020-12-25 | Outpatient (CLI) | payer OTHER ==
--- NOTE | 2020-12-25 16:19 | REPMRS ---
Patient History The patient states she had a clinical breast exam in December 2020. Family history of breast cancer and colorectal cancer in maternal grandmother. Taking hormonal contraceptives for 9 years. No breast complaints today Patient signed the MRS sheet 1st covid vaccine 08/08/20-left arm-Moderna 2nd covid vaccine 09/05/20-left arm Priors on PACS Patient Identification Verified Patient denied Digital Woman Screen Mammo: December 25, 2020 - Exam #: [id number] Bilateral CC and MLO view(s) were taken. Technologist: Hannah Garza, Technologist Prior study comparison: August 11, 2019, bilateral digital woman screen mammo performed at [facility]. August 10, 2018, bilateral digital woman screen mammo performed at [facility]. May 13, 2017, digital woman screen mammo performed at [facility]. FINDINGS: The breast tissue is almost entirely fat. The Volpara volumetric breast density category is: A. There has been no change in the appearance of the mammogram from the prior studies. There is no interval development of dominant mass, architectural distortion, or grouped microcalcification typical of malignancy. 3-D tomosynthesis shows no additional findings. Assessment: BI-RADS/ACR category 1 mammogram. Negative Mammogram. Recommendation Routine screening mammogram of both breasts in 1 year (for women over age 40). This patient's [facility] Lifetime Breast Cancer RIsk is estimated at 18.0 %. This mammogram was interpreted with the aid of an FDA-approved computer-aided dectection system. Electronically Signed By: Joel Quinteros MD 12/25/20 0034
== END ==
LOC: M WHC 15:06
PROVIDERS: ATTEND Nurse Practitioner Women's Health
DX: Z12.31 Encounter for screening mammogram for malignant neoplasm of breast (principal); Z80.3 Family history of malignant neoplasm of breast; Z91.89 Other specified personal risk factors, not elsewhere classified; Z92.0 Personal history of contraception

== ENCOUNTER → 2021-02-08 | Outpatient (REF) | payer OTHER | LOC: M LAB REF 16:10 | PROVIDERS: ATTEND Family Medicine | DX: R19.7 Diarrhea, unspecified (principal) ==

== ENCOUNTER → 2021-06-10 | Outpatient (CLI) | payer OTHER ==
[2021-06-10 17:48] LABS: CREATININE FOR GFR 1.22 MG/DL (0.55-1.30); GLOMERULAR FILTRATION RATE 49.7 (>51)
== END ==
LOC: M LAB 17:03
PROVIDERS: ATTEND Nurse Practitioner Women's Health
DX: Z01.812 Encounter for preprocedural laboratory examination (principal)

== ENCOUNTER → 2021-06-17 | Outpatient (CLI) | payer OTHER ==
[~2021-06-17] MED LIST changes: -PROHANCE 279.3MG/ML 15ML VIAL As Ordered ONE
--- NOTE | 2021-06-17 19:09 | REP ---
INDICATION: FAM HX OF BREAST CA. COMPARISON: Comparison breast MRI study is from February 15, 2020. Comparison mammography December 25, 2020. TECHNIQUE: Three Laurence MRI imaging was performed with a dedicated breast coil. Axial, coronal, and sagittal T1 and T2 weighted scans were obtained with and without fat saturation in the usual fashion. The study includes dynamically acquired post gadolinium-enhanced imaging with image subtraction. Maximum intensity projection and multi planar reformation imaging is included as well. This study is interpreted with the aid of ContactuallyD, an FDA approved computer aided detection (CAD) software program, on a dedicated breast MRI workstation. The gadolinium enhancement dose is 10 mL of intravenous ProHance. FINDINGS: There is a mild amount of fibroglandular tissue bilaterally corresponding with the mammographic pattern. There is mild background parenchymal enhancement. There is no evidence of axillary lymphadenopathy or significant breast cystic change. There are a few scattered T2 hyperintense subcentimeter cysts in each breast unchanged. High-resolution pre and post-contrast T1 and T2 weighted scans show no suspicious morphologic abnormality in either breast. Dynamically acquired sequential postcontrast images show no suspicious area of enhancement and washout kinetics in either breast to suggest malignancy. Subtraction images show no additional abnormality. IMPRESSION: BI-RADS category 2 benign bilateral breast MRI findings. <Electronically signed by Joel Quinteros > 06/17/21 [id number]
== END ==
LOC: M RAD 15:39
PROVIDERS: ATTEND Nurse Practitioner Women's Health
DX: R92.2 Inconclusive mammogram (principal); Z80.3 Family history of malignant neoplasm of breast; Z91.89 Other specified personal risk factors, not elsewhere classified
CPT/HCPCS: A9576; C8908

== ENCOUNTER → 2022-11-09 | Outpatient (REF) | payer OTHER | LOC: M SFHCWAGY 10:33 | PROVIDERS: ATTEND Nurse Practitioner Family | DX: Z12.4 Encounter for screening for malignant neoplasm of cervix (principal); R87.610 Atypical squamous cells of undetermined significance on cytologic smear of cervix (ASC-US) | CPT/HCPCS: 87624; G0123 ==

== ENCOUNTER → 2022-11-09 | Outpatient (CLI) | payer OTHER | LOC: M WHC 16:03 | PROVIDERS: ATTEND Nurse Practitioner Family | DX: Z12.31 Encounter for screening mammogram for malignant neoplasm of breast (principal) ==

== ENCOUNTER → 2022-11-24 | Outpatient (CLI) | payer OTHER ==
[2022-11-24 18:06] LABS: THYROXINE (T4) 7.2 UG/DL (4.5-10.9)
[2022-11-24 18:07] LABS: THYROID STIMULATING HORMONE 2.858 uIU/ML (0.55-4.78); TOTAL 25(OH) VITAMIN D 31.5 NG/ML (20.0-100.0)
[2022-11-24 18:09] LABS: FREE THYROXINE INDEX 2.4 % (1.3-4.8); T UPTAKE 33.7 % (22.5-37.0)
[2022-11-24 18:10] LABS: FOLATE 17.7 NG/ML (>5.4); RHEUMATOID FACTOR QUANT < 3.5 IU/ML (<14); VITAMIN B12 LEVEL 1122 PG/ML (211-911)
== END ==
LOC: M LAB 16:57
PROVIDERS: ATTEND Psychiatry & Neurology Neurology
DX: R51.9 Headache, unspecified (principal); R41.3 Other amnesia

== ENCOUNTER 2022-12-11 18:42 | Emergency (ER) | payer OTHER ==
[~2022-12-11] VITALS: Ht 172.7 cm; Wt 129.7 kg
[2022-12-11 19:28] LABS: BASO # 0.1 10^3/uL (0.0-0.2); BASO % 0.6 % (0.0-1.0); EOS # 0.2 10^3/uL (0.0-0.5); EOS % 1.8 % (0.0-3.0); HEMOGLOBIN 13.5 g/dl (12.0-15.5); LYMPH # 1.3 10^3/uL (1.5-5.0); LYMPH % 14.7 % (24.0-44.0); MEAN CORPUSCULAR HEMOGLOBIN 31.3 pg (27.0-33.0); MEAN CORPUSCULAR HGB CONC 32.9 g/dl (32.0-36.5); MEAN CORPUSCULAR VOLUME 95.1 fl (80.0-96.0); MONO # 0.6 10^3/uL (0.0-0.8); MONO % 6.6 % (2.0-8.0); NEUTROPHILS # 6.7 10^3/uL (1.5-8.5); NEUTROPHILS % 76.1 % (36.0-66.0); PLATELET COUNT, AUTOMATED 248 10^3/uL (150-450); RED BLOOD COUNT 4.31 10^6/uL (4.00-5.40); WHITE BLOOD COUNT 8.8 10^3/uL (4.0-10.0)
[2022-12-11 19:57] LABS: LIPASE 44 U/L (12-53)
[2022-12-11 19:59] LABS: ALBUMIN 3.7 G/DL (3.2-5.2); ALKALINE PHOSPHATASE 114 U/L (46-116); ALT/SGPT 24 U/L (7.0-40); AST/SGOT 16 U/L (<34); BILIRUBIN,DIRECT 0.1 MG/DL (<0.4); BILIRUBIN,TOTAL 0.5 MG/DL (0.3-1.2); BLOOD UREA NITROGEN 19 MG/DL (9-23); CALCIUM LEVEL 9.2 MG/DL (8.5-10.1); CARBON DIOXIDE LEVEL 26 MMOL/L (20-31); CHLORIDE LEVEL 107 MMOL/L (98-107); CREATININE FOR GFR 1.01 MG/DL (0.55-1.30); GLOMERULAR FILTRATION RATE > 60.0 (>51); GLUCOSE, FASTING 111 MG/DL (60-100); POTASSIUM SERUM 4.2 MMOL/L (3.5-5.1); SODIUM LEVEL 139 MMOL/L (136-145); TOTAL PROTEIN 7.1 G/DL (5.7-8.2)
[2022-12-11] MEDS ORDERED: TOPI-254 (20:39)
[2022-12-11] MEDS ORDERED: SUMA25TA3 (20:39)
[2022-12-11] MEDS ORDERED: LEVO100T5 (20:39)
[2022-12-11] MEDS ORDERED: ZOLO100T (20:39)
[2022-12-12] MEDS ORDERED: ACETAMINOPHEN 1000MG 100ML IV BAG IV ONE (01:40)
[2022-12-12] MEDS ORDERED: ISOVUE-370 76% 100ML VIAL As Ordered ONE (01:54)
[2022-12-12] MEDS ORDERED: CIPROFLOXACIN 500MG TABLET PO ONE (03:45)
[2022-12-12] MEDS ORDERED: metroNIDAZOLE (FLAGYL) 500MG TABLET PO ONE (03:45)
[2022-12-12] MEDS ORDERED: METR-265 PO (03:52)
[2022-12-12] MEDS ORDERED: CIPR-249 PO (03:52)
[2022-12-12 04:05] VITALS: BP 104/57; TEMP 97.3; O2SAT 95
== END 2022-12-12 04:11 | disposition home or self-care (01) ==
LOC: M ED 18:42
DX: K57.92 Diverticulitis of intestine, part unspecified, without perforation or abscess without bleeding (principal); K21.9 Gastro-esophageal reflux disease without esophagitis; E03.9 Hypothyroidism, unspecified; Z98.84 Bariatric surgery status; Z79.899 Other long term (current) drug therapy
CPT/HCPCS: 74177; 80048; 80076; 81000; 81015; 83690; 85025; 87086; 96374; 99283; J0131; Q9967

== ENCOUNTER 2023-04-13 10:13 | Day surgery (SDC) | payer OTHER ==
[~2023-04-13] VITALS: Ht 172.7 cm; Wt 129.7 kg
[~2023-04-13 10:13] MED LIST changes: +CIPR-249 PO; +FREM225A SQ; +LEVO100T5; +METR-265 PO; +NS 1,000 ML IV ONE; -PROHANCE 279.3MG/ML 5ML VIAL As Ordered ONE; +SUMA25TA3; +TOPI-254; +ZOLO100T
[2023-04-13 12:05] VITALS: TEMP 97.1
[2023-04-13] MEDS ORDERED: fentaNYL 100 MCG/2 ML INJECTION As Ordered ONE (12:13)
[2023-04-13 12:20] VITALS: BP 127/61; O2SAT 97
== END 2023-04-13 12:38 | disposition home or self-care (01) ==
LOC: M OPP 10:13
PROVIDERS: ATTEND Internal Medicine Gastroenterology
DX: Z86.010 Personal history of colon polyps (principal); Z80.0 Family history of malignant neoplasm of digestive organs; D12.3 Benign neoplasm of transverse colon; K63.5 Polyp of colon; K64.8 Other hemorrhoids; K57.30 Diverticulosis of large intestine without perforation or abscess without bleeding; K22.89 Other specified disease of esophagus; Z98.0 Intestinal bypass and anastomosis status; R13.10 Dysphagia, unspecified; Z79.51 Long term (current) use of inhaled steroids; Z79.890 Hormone replacement therapy; Z79.899 Other long term (current) drug therapy
CPT/HCPCS: 43239; 43450; 45385; 88305; J3010

== ENCOUNTER → 2023-05-31 | Outpatient (CLI) | payer OTHER ==
[~2023-05-31] MED LIST changes: -NS 1,000 ML IV ONE; +PROHANCE 279.3MG/ML 15ML VIAL ONE; +PROHANCE 279.3MG/ML 5ML VIAL ONE
== END ==
LOC: M PLAIMG 13:27
PROVIDERS: ATTEND Nurse Practitioner Family
DX: Z12.39 Encounter for other screening for malignant neoplasm of breast (principal)
CPT/HCPCS: A9576; C8908

== ENCOUNTER → 2023-11-11 | Outpatient (CLI) | payer OTHER ==
[~2023-11-11] MED LIST changes: -PROHANCE 279.3MG/ML 15ML VIAL ONE; -PROHANCE 279.3MG/ML 5ML VIAL ONE; +TOPI-21; -TOPI-254
== END ==
LOC: M WHC 14:27
PROVIDERS: ATTEND Nurse Practitioner Family
DX: Z12.31 Encounter for screening mammogram for malignant neoplasm of breast (principal)

== ENCOUNTER → 2025-02-08 | Outpatient (CLI) | payer OTHER | LOC: M PLARAD 08:40 | PROVIDERS: ATTEND Physician Assistant | DX: S83.91XA Sprain of unspecified site of right knee, initial encounter (principal); X58.XXXA Exposure to other specified factors, initial encounter ==